=== PATIENT | male | born 1950 | race African-American/Black ===

== ENCOUNTER 2021-01-14 13:29 | Emergency (ER) | payer MEDICARE ==
[~2021-01-14] VITALS: Ht 180.3 cm; Wt 79.5 kg
[~2021-01-14 13:29] MED LIST: AMLO-187 PO; DOXA2TAB2 PO; ESOM20CA PO; FINA5TAB4 PO; TAMS0.4C2 PO
[2021-01-14] MEDS ORDERED: LIDO:MAALOX 1:1 20 ML SINGLE DOSE. PO ONE (14:15)
--- NOTE | 2021-01-14 14:34 | RAD ---
HISTORY: PA and lateral chest. HISTORY: Chest discomfort, esophageal foreign body sensation PA and lateral views were taken of the chest. Lungs are free of infiltrates. Heart is normal in size. There is no pleural effusion. Been no change compared to an old study from July 2014. IMPRESSION: 1. No acute chest disease. Electronically signed by: Ad Agudelo MD (01/14/2021 2:31 PM) [id number]
[2021-01-14] MEDS ORDERED: FAMO-63 PO (14:51)
--- NOTE | 2021-01-14 14:52 | PHYS DOC ---
Past Medical History Past Medical History: Cancer, Hypertension, Other Additional Past Medical Histor: enlarged prostate, colon cancer- in remission Past Surgical History: Cancer Surgery, Other Additional Past Surgical Histo: colon ca removed Smoking Status: Never Smoker Alcohol Use: None Drug Use: Marijuana General Adult EDM: Chief Complaint: DIFFICULTY SWALLOWING HPI: HPI: Patient is a 70 year old [f__sex] who presents with [] Review of Systems: Review of Systems: Constitutional: Denies fever or chills. [] Eyes: Denies change in visual acuity. [] HENT: Denies nasal congestion or sore throat. [] Respiratory: Denies cough or shortness of breath. [] Cardiovascular: Denies chest pain or edema. [] GI: Denies abdominal pain, nausea, vomiting, bloody stools or diarrhea. [] : Denies dysuria. [] Musculoskeletal: Denies back pain or joint pain. [] Integument: Denies rash. [] Neurologic: Denies headache, focal weakness or sensory changes. [] Endocrine: Denies polyuria or polydipsia. [] Lymphatic: Denies swollen glands. [] Psychiatric: Denies depression or anxiety. [] Heart Score: Risk Factors: Risk Factors: DM, Current or recent (<one month) smoker, HTN, HLP, family hi story of CAD, obesity. Risk Scores: Score 0 - 3: 2.5% MACE over next 6 weeks - Discharge Home Score 4 - 6: 20.3% MACE over next 6 weeks - Admit for Clinical Observation Score 7 - 10: 72.7% MACE over next 6 weeks - Early Invasive Strategies Current Medications: Current Medications Medications (Trade) Dose Ordered Sig/Karyn Start Time Stop Time Status Last Admin Dose Admin Multi-Ingredient Mouthwash/Gargle (Gi Cocktail) 20 ml 1X ONCE 01/14/21 14:15 01/14/21 14:16 DC 01/14/21 14:37 20 ML Allergies: Allergies: Allergies Coded Allergies Type Severity Reaction Last Updated Verified No Known Drug Allergies 10/25/13 No Physical Exam: PE: Constitutional: Well developed, well nourished, no acute distress, non-toxic appearance. [] HENT: Normocephalic, atraumatic, bilateral external ears normal, oropharynx moist, no oral exudates, nose normal. [] Eyes: PERRLA, EOMI, conjunctiva normal, no discharge. [] Neck: Normal range of motion, no tenderness, supple, no stridor. [] Cardiovascular:Heart rate regular rhythm, no murmur [] Lungs & Thorax: Bilateral breath sounds clear to auscultation [] Abdomen: Bowel sounds normal, soft, no tenderness, no masses, no pulsatile masses. [] Skin: Warm, dry, no erythema, no rash. [] Back: No tenderness, no CVA tenderness. [] Extremities: No tenderness, no cyanosis, no clubbing, ROM intact, no edema. [] Neurologic: Alert and oriented X 3, normal motor function, normal sensory function, no focal deficits noted. [] Psychologic: Affect normal, judgement normal, mood normal. [] Current Patient Data: Vital Signs: Vital Signs Date Time Temp Pulse Resp B/P (MAP) Pulse Ox O2 Delivery O2 Flow Rate FiO2 01/14/21 13:50 98.2 83 18 139/78 (98) 98 Room Air 98.2 EKG: EKG: @1435 NSR at 65bpm, NO ST elevation, QRS 80ms, QT/QTc 392/413ms, t wave inversion V2, Q wave in aVL Radiology/Procedures: Radiology/Procedures: PROCEDURE: CHEST PA & LATERAL HISTORY: PA and lateral chest. HISTORY: Chest discomfort, esophageal foreign body sensation PA and lateral views were taken of the chest. Lungs are free of infiltrates. Heart is normal in size. There is no pleural effusion. Been no change compared to an old study from July 2014. IMPRESSION: 1. No acute chest disease. Electronically signed by: Ad Agudelo MD (01/14/2021 2:31 PM) [id number] Course & Med Decision Making: Course & Med Decision Making Pertinent Labs and Imaging studies reviewed. (See chart for details) [] Dragon Disclaimer: Dragon Disclaimer: This electronic medical record was generated, in whole or in part, using a voice recognition dictation system. Departure Departure Impression: Primary Impression: Sensation of foreign body in esophagus Disposition: 01 DC HOME SELF CARE/HOMELESS Condition: IMPROVED Referrals: PERI RASHEED MD (PCP) ESTHELA SETHI MD Patient Instructions: Dysphagia Diet Level 3, Advanced, Esophageal Spasm, Esophageal Stricture, Esophagitis Scripts Famotidine (PEPCID) 20 Mg Tablet 20 MG PO BID, #60 TAB Prov: STUART ROWAN DO 01/14/21 STUART ROWAN DO Jan 14, 2021 14:52
[2021-01-14 15:10] VITALS: BP 134/76
--- NOTE | 2021-01-14 19:39 | EKG ---
[facility] [address] [place] [address] Test Date: 2021-01-14 Test Time: 14:35:36 Pat Name: THANG SORTO Department: Room: Gender: M Com Writer: : 1950 Requested By: STUART ROWAN Order Number: [id number] Reading MD: Measurements Intervals [place] Rate: 65 P: 47 MA: 200 QRS: 39 QRSD: 80 T: 46 QT: 392 QTc: 413 Interpretive Statements SINUS RHYTHM NO SPECIFIC ECG ABNORMALITIES RI6.02 No previous ECG available for comparison
== END 2021-01-14 15:10 | disposition home or self-care (01) ==
LOC: ER 13:29
DX: T18.198A Other foreign object in esophagus causing other injury, initial encounter (principal); R06.00 Dyspnea, unspecified; I10 Essential (primary) hypertension; F12.90 Cannabis use, unspecified, uncomplicated; Z85.038 Personal history of other malignant neoplasm of large intestine; Z98.890 Other specified postprocedural states; X58.XXXA Exposure to other specified factors, initial encounter; Y93.89 Activity, other specified; Y92.89 Other specified places as the place of occurrence of the external cause; Y99.8 Other external cause status
CPT/HCPCS: 71046; 93005; 99281; 99283

== ENCOUNTER → 2021-02-23 | Outpatient (CLI) | payer MEDICARE ==
[~2021-02-23] MED LIST changes: +FAMO-63 PO; +IOHEXOL 300 MG/ML 100ML VIAL. IV ONE
[2021-02-23 16:03] LABS: CREATININE 1.2 mg/dL (0.7-1.3)
--- NOTE | 2021-02-23 17:02 | RAD ---
CT NECK SOFT TISSUE WITH IV CONTRAST History: Globus sensation. Comparison: None. Technique: CT of the neck with intravenous contrast. Findings: Mucosa: Mild wall thickening of the upper esophagus without focal lesion. No mass in the nasal cavity , nasopharynx, oral cavity, oropharynx, larynx, hypopharynx, or proximal trachea. Oral cavity is obsc ured by dental artifact. Glands: Normal bilateral parotid, submandibular, and thyroid glands. Nodes: Nonspecific, borderline enlarged 9 mm right supraclavicular lymph node, 11 mm right lower pret prateek and 9 mm right lower pretracheal lymph node. Vessels: Vascular structures are patent. No carotid space mass. Bones: Multilevel cervical spondylosis with disc space narrowing and uncovertebral hypertrophy C2-C7. Prominent anterior osteophytes C3-C4 and C4-C5. Other: Mild apical paraseptal emphysematous change. Impression: 1. Mild esophageal wall thickening without focal mass. Consider endoscopy for further evaluation. 2. Nonspecific, borderline enlarged right supraclavicular and mediastinal lymph nodes measuring up t o 11 mm short axis. 3. Cervical spondylosis with prominent anterior osteophytes in the mid cervical spine, possible etio logy for globus sensation. ------ Exposure: One or more of the following individualized dose reduction techniques were utilized for thi s examination: 1. Automated exposure control 2. Adjustment of the mA and/or kV according to patient size 3. Use of iterative reconstruction technique. Electronically signed by: Rob Davis MD (02/23/2021 5:00 PM) [facility]
== END ==
LOC: CT 15:27
PROVIDERS: ATTEND Internal Medicine Gastroenterology
DX: M47.812 Spondylosis without myelopathy or radiculopathy, cervical region (principal); M48.02 Spinal stenosis, cervical region; M25.78 Osteophyte, vertebrae; M89.38 Hypertrophy of bone, other site; J43.9 Emphysema, unspecified; R59.0 Localized enlarged lymph nodes; J34.89 Other specified disorders of nose and nasal sinuses
CPT/HCPCS: 36415; 70491; 82565; 84520; Q9967

== ENCOUNTER → 2021-03-21 | Outpatient (CLI) | payer MEDICARE ==
[~2021-03-21] MED LIST changes: +CONTRAST GIVEN. MC PRN
--- NOTE | 2021-03-21 17:00 | RAD ---
EXAM: CT OF THE CHEST WITH CONTRAST. HISTORY: Lymphadenopathy. TECHNIQUE: Computed tomography of the chest was performed after the intravenous administration of iod inated contrast. One or more of the following individualized dose reduction techniques were utilized for this examination: 1. Automated exposure control. 2. Adjustment of the mA and/or kV according to patient size. 3. Use of iterative reconstruction technique. COMPARISON: 02/23/2021. FINDINGS: Images of the upper abdomen reveal bilateral renal cysts measuring up to 5.8 cm at the righ t upper pole. Bone windows reveal no suspicious lesions. A right supraclavicular lymph node is unchanged at approximately 11 x 8 mm on image 6. A lower right paratracheal node on image 22 measures 14 x 8 mm. The largest on image 26 measures 17 x 9 mm. A subca rinal density on image 34 is fluid density in regions without beam hardening and most likely represen ts a pericardial recess rather than a prominent lymph node. There are no enlarged axillary lymph node s. There is a small pericardial effusion. There is no pleural effusion. The heart is not enlarged. A small groundglass opacity posteriorly in the right lower lobe on image 24 spans 7 mm and may repres ent only atelectasis. Additional subpleural densities posteriorly bilaterally most likely reflect ate lectasis. There is mild paraseptal emphysema in the right apex. IMPRESSION: 1. No clear interval change in a few prominent mediastinal and right supraclavicular lymph nodes. 2. A vague 7 mm groundglass density nodule in the right lower lobe may be only atelectasis. 3. These findings could be followed in 3-6 months to confirm stability. 4. Small pericardial effusion. Electronically signed by: Brijesh Mackey MD (03/21/2021 4:57 PM) [id number]
== END ==
LOC: CT 15:43
PROVIDERS: ATTEND Internal Medicine Gastroenterology
DX: I31.3 Pericardial effusion (noninflammatory) (principal)
CPT/HCPCS: 71260; Q9967

== ENCOUNTER → 2022-01-07 | Day surgery (SDC) | payer MEDICARE ==
[~2022-01-07] VITALS: Ht 180.3 cm; Wt 77.7 kg
[~2022-01-07] MED LIST changes: -CONTRAST GIVEN. MC PRN; -IOHEXOL 300 MG/ML 100ML VIAL. IV ONE; +IV RINGERS,LACTATED 1000ML 1,000 ML IV SCH; +LIDOCAINE 2% PF 5 ML VIAL. ONE; +OMEP20TA8 PO; +PROPOFOL 10 MG/ML (20ML) VIAL. IV ONE; +TIMO5SOL10 EACHEYE
[2022-01-07 15:10] VITALS: BP 131/79
--- NOTE | 2022-01-07 15:25 | PDOC1 ---
History and Physical Date of Admission Date of Admission DATE: 01/07/22 TIME: 15:19 Identification/Chief Complaint Chief Complaint H/o colon polyps Source Source: Chart review, Patient History of Present Illness History of Present Illness 71 y/o male with h/o colon polyps. Last exam 2018 and 3-yr f/u recommended. No complaints. Past Medical History Cardiovascular: HTN Heme/Onc: Other (Ileal carcinoid, resected) Past Surgical History Past Surgical History: Colon Resection (right hemicolectomy for the carcinoid), Other (eye surgery) Family History Family History: Diabetes Social History Smoke: Quit ALCOHOL: occassional Drugs: None Current Medications Current Medications Current Medications Propofol (Diprivan) 200 mg STK-MED ONCE IV ; Start 01/07/22 at 13:27; Stop 01/07/22 at 13:27; Status DC Lidocaine HCl (Lidocaine Pf 2% Vial) 5 ml STK-MED ONCE .ROUTE ; Start 01/07/22 at 13:27; Stop 01/07/22 at 13:28; Status DC Active Scripts Active Reported Timolol Maleate 5 Ml Lore.gel 1 Drop EACHEYE DAILYWBKFT Omeprazole 20 Mg Tablet.dr 20 Mg PO DAILY Finasteride 5 Mg Tablet 5 Mg PO DAILY Amlodipine Besylate 10 Mg Tablet 10 Mg PO DAILY Allergies Allergies: Coded Allergies: No Known Drug Allergies (Unverified , 01/07/22) ROS Review of System Otherwise negative. Physical Exam General: Alert, Oriented X3, Cooperative, No acute distress Lungs: Clear to auscultation Heart: S1S2, RRR, no gallops, no murmurs Abdomen: Normal bowel sounds, Soft, No tenderness, No hepatosplenomegaly, No masses Rectal Exam: deferred (to procedure) Extremities: No cyanosis, No edema Skin: No significant lesion Neuro: Normal speech, Strength at 5/5 X4 ext, Normal tone, Sensation intact, Cranial nerves 3-12 NL, Reflexes 2+ Psych/Mental Status: Mental status NL, Mood NL Vitals Vitals Vital Signs Date Time Temp Pulse Resp B/P (MAP) Pulse Ox O2 Delivery O2 Flow Rate FiO2 01/07/22 15:10 97.0 72 14 96 97.0 VTE Prophylaxis Ordered VTE Prophylaxis Devices: No VTE Pharmacological Prophylaxi: No Assessment/Plan Assessment/Plan IMP: H/o polyps, due for surveillance. PLAN: colonoscopy STUART KELLY MD Jan 07, 2022 15:24
--- NOTE | 2022-01-07 15:47 | PDOC4 ---
PROCEDURE Procedure Colonoscopy Indication: h/o polyps, last 2019 Meds: per anesthesia. Findings: JUDY normal. --Scope advanced to ileocolostomy. Prep adequate. Mucosa normal. One diverticulum seen in transverse. Smooth, maybe submucosal polyp seen in rectum and biopsied; did not appear adenomatous. Internal hemorrhoids on retroflex. Gabriela. well. IMP: S/p right hemicolectomy Diverticulosis Rectal polyp, biopsies pending. Internal hemorrhoids. REC: resume meds, diet. F/u path. F/u with me in 2 weeks. Repeat exam in 5 years unless unexpected finding on path. STUART KELLY MD Jan 07, 2022 15:47
[2022-01-07 15:55] VITALS: BP 120/69
== END | disposition home or self-care (01) ==
LOC: ENDOS 14:42
PROVIDERS: ATTEND Internal Medicine Gastroenterology
DX: Z12.11 Encounter for screening for malignant neoplasm of colon (principal); K64.0 First degree hemorrhoids; K57.30 Diverticulosis of large intestine without perforation or abscess without bleeding; K63.89 Other specified diseases of intestine; K62.1 Rectal polyp; D12.6 Benign neoplasm of colon, unspecified; I10 Essential (primary) hypertension; K21.9 Gastro-esophageal reflux disease without esophagitis; Z86.010 Personal history of colon polyps; Z79.899 Other long term (current) drug therapy; Z98.890 Other specified postprocedural states; Z83.3 Family history of diabetes mellitus
CPT/HCPCS: 45380; J2704